=== PATIENT | male | born 1985 | race American Indian/Alaskan Native ===

== ENCOUNTER 2019-09-22 21:34 | Emergency (ER) | payer SELFPAY ==
[2019-09-22 21:55] VITALS: BP 125/78
--- NOTE | 2019-09-22 22:02 | Emergency Department Report ---
Chief Complaint: Urogenital-Male Stated Complaint: STD Time Seen by Provider: 09/22/19 21:58 - HPI History of Present Illness: 34 y o male presents to ED cc of thinking he has gonorhea or trich stating his sexual partner may have given him an std pt denies symptom such as f/c/n/v/ penile d/c or testicular pain or swelling - ROS Review of Systems: As noted in HPI - Exam Vital Signs: Vital Signs 09/22/19 21:53 Temperature 97.7 F Pulse Rate 75 Respiratory 18 Rate Blood Pressure 125/78 Blood Pressure 125/78 [Left] O2 Sat by Pulse 97 Oximetry Physical Exam: GEN: AAO x 3 . no acute ditress MSE screening note: Focused history and physical exam performed. Due to findings the following was ordered: ED Medical Decision Making - Medical Decision Making 34-year-old male presents with STD screening Discussed the patient is not a medical emergency. Patient had no trauma or any signs of testicular swelling or pain. Patient had no symptoms. Discussed with him to follow-up with [facility] for STD screening and treatment. Vital signs are normal patient is in no acute distress. Referrals given to patient. ED Disposition for MSE Clinical Impression: Screen for STD (sexually transmitted disease) Disposition: MED SCREENING EXAM-LEFT Is pt being admited?: No Does the pt Need Aspirin: No Condition: Stable Instructions: Sexually Transmitted Diseases in Adolescents (ED) Referrals: [facility] [Outside] - 3-5 Days [facility] [Outside] - 3-5 Days [facility] [Outside] - 3-5 Days Forms: Work/School Release Form(ED) Time of Disposition: 22:01
== END 2019-09-22 22:21 | disposition left against medical advice (07) ==
LOC: ED 21:34
DX: Z20.2 Contact with and (suspected) exposure to infections with a predominantly sexual mode of transmission (principal); Z53.21 Procedure and treatment not carried out due to patient leaving prior to being seen by health care provider